=== PATIENT | female | born 1985 | race Caucasian/White ===

== ENCOUNTER → 2016-10-12 | Outpatient (CLI) | payer OTHER ==
[~2016-10-12] MED LIST: PRENTAB26 PO
[2016-10-12 18:35] LABS: GTGD 50 Grams
== END | disposition home or self-care (01) ==
LOC: C.LAB1850 15:50
PROVIDERS: ATTEND Obstetrics & Gynecology
DX: Z34.02 Encounter for supervision of normal first pregnancy, second trimester (principal)

== ENCOUNTER 2016-12-23 18:46 | Outpatient (CLI) | payer OTHER ==
[~2016-12-23] VITALS: Ht 175.3 cm; Wt 65.8 kg
[2016-12-23] MEDS ORDERED: PRENTAB26 PO (19:22)
[2016-12-23 19:25] VITALS: Ht 175.3 cm; Wt 65.8 kg
--- NOTE | 2016-12-24 13:55 | EDITING REQUIRED CODING QUERY ---
DIAGNOSIS NEEDED To promote full compliance with coding requirements relating to patient care, physician participation is requested in all cases of box spring maker uncertainty. Please assist us with the question(s) below: Coding Question: The patient received care in labor and delivery on 12/23/16 as noted within the record. Please document the diagnosis that is being addressed by the medication/treatment. Provider Response: DIAGNOSIS: 27 weeks, fall Thank you for your assistance, Tita Carmona - Sharepoint Application Architect
== END 2016-12-23 23:07 | disposition home or self-care (01) ==
LOC: C.OPB 18:46 → C.LD 18:46 → C.OPB 23:07
PROVIDERS: ATTEND Obstetrics & Gynecology
DX: Z34.02 Encounter for supervision of normal first pregnancy, second trimester (principal); Z3A.27 27 weeks gestation of pregnancy; W19.XXXA Unspecified fall, initial encounter

== ENCOUNTER → 2017-01-05 | Outpatient (CLI) | payer OTHER ==
[2017-01-05 18:39] LABS: GTGD 50 Grams
[2017-01-05 18:44] LABS: URINE APPEARANCE CLEAR (CLEAR); URINE BILIRUBIN NEG (NEG); URINE COLOR YELLOW; URINE NITRITE NEG (NEG); URINE PH 7.5 (4.5-7.5); URINE SPECIFIC GRAVITY 1.009 (1.000-1.030); UROBILINOGEN NEG (NEG)
[2017-01-05 18:47] LABS: MANUAL MICROSCOPIC REQUIRED? NO; REVIEW REQ? NO
== END | disposition home or self-care (01) ==
LOC: C.LAB1850 15:05
PROVIDERS: ATTEND Obstetrics & Gynecology
DX: Z34.03 Encounter for supervision of normal first pregnancy, third trimester (principal)

== ENCOUNTER → 2017-03-03 | Outpatient (CLI) | payer OTHER | END | disposition home or self-care (01) | LOC: C.LABSPEC 10:46 | PROVIDERS: ATTEND Obstetrics & Gynecology | DX: Z34.03 Encounter for supervision of normal first pregnancy, third trimester (principal) ==

== ENCOUNTER → 2017-03-11 | Outpatient (CLI) | payer OTHER ==
[2017-03-15 01:36] LABS: 18KDIGG BAND NONREACTIVE (NONREACTIVE); 23KDIGG BAND NONREACTIVE (NONREACTIVE); 23KDIGM BAND REACTIVE (NONREACTIVE); 28KDIGG BAND NONREACTIVE (NONREACTIVE); 30KDIGG BAND NONREACTIVE (NONREACTIVE); 39KDIGG BAND NONREACTIVE (NONREACTIVE); 39KDIGM BAND NONREACTIVE (NONREACTIVE); 41KDIGG BAND REACTIVE (NONREACTIVE); 41KDIGM BAND REACTIVE (NONREACTIVE); 45KDIGG BAND NONREACTIVE (NONREACTIVE); 58KDIGG BAND NONREACTIVE (NONREACTIVE); 66KDIGG BAND REACTIVE (NONREACTIVE); 93KDIGG BAND NONREACTIVE (NONREACTIVE)
== END | disposition home or self-care (01) ==
LOC: C.LAB1850 09:43
PROVIDERS: ATTEND Family Medicine
DX: T14.8 Other injury of unspecified body region (principal); W57.XXXA Bitten or stung by nonvenomous insect and other nonvenomous arthropods, initial encounter

== ENCOUNTER 2017-03-30 23:07 | Inpatient (IN) | payer OTHER ==
[~2017-03-30] VITALS: Ht 175.3 cm; Wt 70.0 kg
[2017-03-30] MEDS ORDERED: LACTATED RINGER'S 1000ML 1,000 ML IV PRN (23:27)
[2017-03-30] MEDS ORDERED: BUPIVACAINE 0.25% 30 ML VIAL ONE (23:54)
[2017-03-30] MEDS ORDERED: EpHEDrine SULFATE INJ 50 MG/ML AMP ONE (23:54)
[2017-03-30] MEDS ORDERED: FENTANYL CITRATE INJ 50 MCG/1 ML 2 ML VIAL ONE (23:54)
[2017-03-30] MEDS ORDERED: FENTANYL 2MCG/ML ROPIV 1.25MG/ML 100ML BAG EPI ONE (23:54)
[2017-03-31 00:27] VITALS: Ht 175.3 cm; Wt 70.0 kg
[2017-03-31 00:28] LABS: MEAN CELL VOLUME 95.1 fL (80-100); MEAN CORPUSCULAR HEMOGLOBIN 32.4 pg (25-34); MEAN PLATELET VOLUME 11.2 fL (7.4-10.4); PLATELET COUNT 160 K/uL (130-400); RED BLOOD COUNT 3.89 M/uL (4.2-5.4); WHITE BLOOD COUNT 13.16 K/uL (4.8-10.8)
[2017-03-31 00:33] LABS: MEAN CORPUSCULAR HGB CONC 34.1 g/dl (32-36)
[2017-03-31] MEDS: LACTATED RINGER'S 1000ML 1,000 ML IV SCH ×2 (01:14→09:42)
[2017-03-31] MEDS ORDERED: NALOXONE HCL INJ 1 MG in SODIUM CHLORIDE 0.9% 1000ML 1,000 ML IV PRN (01:39)
[2017-03-31] MEDS ORDERED: LACTATED RINGER'S 1000ML 500 ML IV PRN (01:39)
[2017-03-31] MEDS ORDERED: NALOXONE HCL INJ 0.4 MG/1 ML VIAL/CARP IV PRN (01:45)
[2017-03-31] MEDS ORDERED: EpHEDrine SULFATE INJ 50 MG/ML AMP IV PRN (01:45)
[2017-03-31] MEDS ORDERED: NALBUPHINE HCL INJ 10 MG/ML AMP IV PRN (01:45)
[2017-03-31] MEDS ORDERED: DiphenhydrAMINE HCL 50 MG/ML VIAL IV PRN (01:45)
[2017-03-31] MEDS: FENTANYL 2MCG/ML ROPIV 1.25MG/ML 100ML BAG EPI PRN ×3 (07:42→12:08)
[2017-03-31] MEDS ORDERED: FENTANYL CITRATE INJ 50 MCG/1 ML 2 ML VIAL ONE ×2 (08:08→10:38)
[2017-03-31] MEDS ORDERED: NURSING DECISION MEDICATION ORDER SCH (10:00)
[2017-03-31] MEDS ORDERED: AMOXICILLIN 500 MG CAP PO ONE (10:00)
[2017-03-31] MEDS ORDERED: FENTANYL CITRATE INJ 50 MCG/1 ML 2 ML VIAL IV ONE (11:00)
--- NOTE | 2017-03-31 11:05 | Medical Student: [facility] ---
Med Student History & Physical Date of Service Mar 31, 2017. Chief Complaint Check labor History of Present Illness Source: patient, clinic records, hospital records Odalis Mendez is a 31 year old at 41 weeks gestation KADIE 03/24/17 admitted to L&D around mindnight this morning for spontaneous onset of labor. She is blood type A negative, GBS negative, and rubella immune. She took vitamins throughout the . She had a Panorama on 09/21/16 that was within normal limits. A ultrasound on 11/13/16 showed no abnormalities. She recieved Rhogam at 26 weeks. At around 27 weeks she had a fall. She had an abnormally low MSAFP, and requested weekly NSTs starting at 36 weeks as her sister recently gave to a baby with lissencephaly due to a 17p deletion. NSTs have been reactive. OB History Patient is a no other Ob. 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 Past Medical History no contributory past medical history Past Surgical History [place] teeth surgery Family History Family history of anemia. Patient's mother and sisters x2 have thalassemia. Patient is negative for thalassemia. the father and his brother(paternal uncle) have a delayed muscular development disorder Social History non-contributory Smoking Status: Never Smoker Smokeless Tobacco Use: No Alcohol Use: none Drug Use: none Marital Status: Occupational Status: employed Allergies Coded Allergies: No Known Allergies (Unverified , 03/31/17) Home Medications Multivit/Min/Iron/Fol Ac/Pren ( Vitamin), 1 TAB PO DAILY Physical Exam Fundal Height: term Extremities: normal inspection Appearance: distress from labor pain Abdomen: gravid, lie is vertex Extremities: normal inspection Fundus: term : Dilation - 8.5-9, effacement 100%, Station 0 Monitoring External Monitor: Heart rate in 150s Tocodynamometer: Contractions every 3 min. of adequate strength. Normal tracing with accels and no decels at the moment. Category 1. Laboratory Results 03/30/17 23:58 Test 03/30/17 23:58 Red Blood Count 3.89 M/uL (4.2-5.4) Mean Corpuscular Volume 95.1 fL (80-100) Mean Corpuscular Hemoglobin 32.4 pg (25-34) Mean Corpuscular Hemoglobin Concent 34.1 g/dl (32-36) RDW Standard Deviation 44.0 fL (36.4-46.3) RDW Coefficient of Variation 12.7 % (11.5-14.5) Mean Platelet Volume 11.2 fL (7.4-10.4) Assessment and Plan Assessment: 1. Patient is a 31 year old at 41 weeks gestation in spontaneous labor 2. distressing pain during contractions of labor Plan: 1. Continue spontaneous labor for vaginal delivery 2. Epidural anesthesia for pain management
[2017-03-31] MEDS ORDERED: OXYTOCIN 30 UNITS/500ML NSS IV ONE (12:42)
[2017-03-31] MEDS: AMOXICILLIN 500 MG CAP PO SCH ×2 (15:17→21:07)
--- NOTE | 2017-03-31 15:32 | Vaginal Delivery Summary ---
Vaginal Delivery Summary 31yo pushing for 2.5 hours. I went to room to examine patient and found head at +3 station, just appearing between labia with pushes. Patient was tearful and complaining of exhaustion and frustration. On exam in between pushing efforts I was able to dislodge head upwards and allow a flow of thickly meconium-stained fluid per vagina. However her next pushing effort brought the head back to where scalp was visible between labia. I offered options including continued pushing, attempt of operative vaginal delivery, and . Patient strongly desired attempt of operative vaginal delivery. I elected for vacuum as the infant was very close to and did not have significant molding or caput. The patient and her partner were counseled fully on the risks of vacuum use including scalp injury, neck/shoulder injury, dystocia, or increased maternal lacerations, as well as failure leading to urgent . She agreed to proceed. Infant in RAUL position. Betadine prep and urinary straight cath performed. The vacuum was applied. Suction was generated to the "safe" zone on the Kiwi cup. Unfortunately suction was difficult to maintain due to so much hair on the baby's head. I was only able to apply very minimal traction before the suction began to loosen. Maternal pushing efforts continued, and we were jointly able to bring the head to . I then created a small midline episiotomy, and over several more pushing efforts, mom was able to deliver the head. From that point the remainder of delivery was easy without any delay for shoulders or body. Placenta delivered spontaneously and was intact with 3VC. A second-degree laceration was repaired with vicryl suture. The fundus was firm, lochia was minimal, and mom and are in good condition following delivery.
--- NOTE | 2017-03-31 15:34 | Medical Student: [facility] ---
Medical Student Delivery Note Delivery Date: 03/31/2017 Procedure: Operative (Vacuum assisted) vaginal delivery at 41 weeks gestation Surgeon: Dr. Jernigan Anesthesia: Epidural anesthesia Estimated blood loss: 400mL Description: Odalis Mendez is a 31 year old at 41 weeks gestation KADIE 08/29 admitted to L&D around midnight this morning for spontaneous onset of labor. She is blood type A negative, GBS negative. She progressed to full dilation. The patient then pushed actively over an intact perineum for about 2.5 hours. The vertex stalled at around 3+ station. The patient experienced moderate - severe breakthrough pain in spite of the epidural. She described exhaustion from pushing in active labor. The patient was given options to continue delivery including continuing spontaneous delivery, operative delivery options including vacuum or forceps, and section. The patient was education on the risk and benefits of each procedure. She did not was a c- section and decided vacuum assisted operative delivery was best, as she was very tired from pushing. A kiwi vacuum was used to assist in descent and maneuvering of the head around the pubic symphysis. A midline episiotomy was made to aid in delivery of the head. No nuchal cord was noted. The infant was delivered head first, left occiput anterior, then anterior shoulder, then posterior shoulder, and then the body was delivered. The was placed on mothers abdomen for further attention and warming. The mouth and pharynx were suctioned. There was spontaneous crying and movement of all 4 limbs. The cord was clamped and cut. Cord blood was collected. Placenta was intact and delivered with a 3 vessel cord. Bleeding was then controlled with fundal massage and dilute IV oxytocin. A second degree laceration was repaired with 2- 0 vicryl suture and 3-0 vicryl suture. Mom and baby are doing well after delivery. Apgars 8/9. Weight pending. Estimated blood loss 400mL.
[2017-03-31] MEDS ORDERED: LACTATED RINGER'S 1000ML 1,000 ML IV SCH (15:40)
[2017-03-31] MEDS ORDERED: OXYCODONE/ACETAMINOPHEN 5-325 TAB PO PRN (15:45)
[2017-03-31] MEDS ORDERED: OXYTOCIN 30 UNITS/500ML NSS IV PRN (15:45)
[2017-03-31] MEDS ORDERED: BENZOCAINE 20% AER SPR 82.5 GM CAN EXT PRN (15:45)
[2017-03-31] MEDS ORDERED: HYDROCORTISONE ACETATE 25 MG SUPP PR PRN (15:45)
[2017-03-31] MEDS ORDERED: SUPERCREAM 0.870 % 15GM JAR EXT PRN (15:45)
[2017-03-31] MEDS ORDERED: LANOLIN OINT EXT PRN ×2 (15:45)
[2017-03-31] MEDS ORDERED: ACETAMINOPHEN 325 MG TAB PO PRN (15:45)
[2017-03-31] MEDS ORDERED: IBUPROFEN 600 MG TAB PO PRN (15:45)
--- NOTE | 2017-03-31 16:00 | Anesthesia Procedure Note ---
Anesthesia Epidural Removal Nt Date & Time Mar 31, 2017 at 16:00 Vital Signs Pain Intensity: 0.0 Notes Mental Status: alert / awake / arousable, participated in evaluation Nausea / Vomiting: adequately controlled Pain: adequately controlled Airway Patency, RR, SpO2: stable & adequate BP & HR: stable & adequate Hydration State: stable & adequate Neuraxial Anesthesia: was administered Anesthetic Complications: no major complications apparent, pt satisfied with anesthetic care Epidural: removed without complications, with tip intact
[2017-03-31 18:10] VITALS: BP 114/69; PULSE 74; TEMP 36.9
[2017-03-31 20:50] VITALS: BP 103/62; PULSE 62; TEMP 37; O2SAT 97
[2017-03-31] MEDS: DOCUSATE SODIUM 100 MG CAP PO SCH (21:07)
[2017-04-01] VITALS: BP 100/62; PULSE 64; TEMP 36.9; O2SAT 97
[2017-04-01 03:20] VITALS: BP 92/53; PULSE 61; TEMP 36.9; O2SAT 97
[2017-04-01 06:18] LABS: HEMATOCRIT 27.7 % (37-47)
--- NOTE | 2017-04-01 06:43 | OB/GYN Progress Note ---
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 Subjective conversation w/ patient, physical exam, chart review, lab review Ambulation: limited ambulation (to bathroom) Voiding: no voiding problems Passing Gas: Yes Diet Tolerance: Regular Diet Lochia: Small Feeding Type: Breast Feeding Pain: Says low abdomen "sore" Review of Systems Constitutional: No fever, No chills Respiratory: No cough, No shortness of breath Cardiac: No chest pain Abdomen: No nausea, No vomiting, No diarrhea Female : No dysuria Objective Vital Signs Date Time Temp Pulse Resp B/P (MAP) Pulse Ox O2 Delivery O2 Flow Rate FiO2 04/01/17 03:20 36.9 61 18 92/53 (66) 97 Room Air 04/01/17 00:00 Room Air 04/01/17 00:00 36.9 64 20 100/62 (75) 97 Room Air 03/31/17 20:50 37.0 62 20 103/62 (76) 97 Room Air 03/31/17 18:10 Room Air 03/31/17 18:10 36.9 74 18 114/69 (84) Room Air Physical Exam General Appearance: WELL-APPEARING, WD/WN, NO APPARENT DISTRESS Respiratory/Chest: lungs clear, normal breath sounds Cardiovascular: regular rate, rhythm Abdomen: normal bowel sounds, non tender Fundus: Firm, Non-Tender, Relation to Umbilicus (at umbilicus) Extremities: normal range of motion, non-tender, no pedal edema, no calf tenderness Laboratory Results Last 24 Hours Test 04/01/17 05:33 Hemoglobin 9.7 g/dL Hematocrit 27.7 % Assessment and Plan Post- Day Number: 1 Continue Routine Care: 31yo s/p , now PPD #1. - Blood type A neg. GBS negative. Rubella immune. - Vital signs reviewed and stable. - Pain controlled without PO meds thus far. - No leg swelling or tenderness on calf palpation. Encourage ambulation. - Encourage breast feeding. - Hemoglobin preop 12.6, post-delivery this am pending. Bleeding has improved. Continue to monitor clinically. - On amoxicillin PO for hx positive lyme titer from prepartum. - Continue routine post-vaginal delivery care. - Pt agreed with above plan, all current questions answered. Willis Gardiner MD, PGY1 Crime Laboratory Analyst Physician Supervision Note: I interviewed and examined the patient. Discussed with Dr. Gardiner and agree with findings and plan as documented in the note. Any exceptions or clarifications are listed here: [None] Documented By: Adrienne Jernigan Resident Tracking Resident Involvement: Resident Care Provided Care Provided: OB Delivery (morning rounds)
[2017-04-01] MEDS ORDERED: DIPHTHERIA/TETANUS/PERTUSSIS 0.5 ML SYR/VIAL IM. ONE (08:00)
[2017-04-01] MEDS: AMOXICILLIN 500 MG CAP PO SCH ×3 (08:39→19:43)
[2017-04-01] MEDS: DOCUSATE SODIUM 100 MG CAP PO SCH ×2 (08:40→19:43)
[2017-04-01] MEDS: FERROUS SULFATE 325 MG TAB PO SCH (08:41)
[2017-04-01] MEDS: PRENATAL VITAMIN TAB PO SCH (08:42)
[2017-04-01 09:15] VITALS: BP 99/65; PULSE 56; TEMP 36.7; O2SAT 98
[2017-04-01 12:45] VITALS: BP 97/63; PULSE 72; TEMP 36.8; O2SAT 96
[2017-04-01 15:45] VITALS: BP 105/69; PULSE 64; TEMP 36.7; O2SAT 98
[2017-04-02] VITALS: BP 122/70; PULSE 61; TEMP 37; O2SAT 99
--- NOTE | 2017-04-02 06:29 | Medical Student: [facility] ---
Med Student MANAGER DOCUMENT CONTROL Progress Nt Date of Service Apr 02, 2017. Subjective conversation w/ patient, physical exam Ambulation: limited ambulation (Walks to bathroom and nursery, has not went on walks around floor yet) Voiding: no voiding problems Passing Gas: Yes Diet Tolerance: Regular Diet Lochia: Small Feeding Type: Breast Feeding Pain: Minimal. Expected level of tenderness to perineum Notes: Describes a headache since last night. Has not taken any medication for it Sitz baths have helped with perineal tenderness She has breast tenderness and describes her breasts as "raw" Review of Systems Abdomen: No nausea, No vomiting Female : No dysuria Noted no mood changes, no edema, no swelling. Objective Vital Signs Date Time Temp Pulse Resp B/P (MAP) Pulse Ox O2 Delivery O2 Flow Rate FiO2 04/02/17 00:00 37.0 61 18 122/70 (87) 99 Room Air 61 04/02/17 00:00 Room Air 04/01/17 15:45 98 Room Air 04/01/17 15:45 36.7 64 16 105/69 (81) 98 Room Air 64 04/01/17 12:45 36.8 72 20 97/63 (74) 96 Room Air 04/01/17 09:15 Room Air 04/01/17 09:15 36.7 56 16 99/65 (76) 98 Room Air Physical Exam General Appearance: WELL-APPEARING, WD/WN Respiratory/Chest: lungs clear, normal breath sounds Cardiovascular: regular rate, rhythm Fundus: Firm Fundal height 2 finger lengths below the umbilicus Assessment and Plan Post- Day Number: 2 Continue Routine Care: Assessment: Patient is a 31 year old PPD 2 post operative vacuum assisted vaginal delivery at 41 weeks gestation. Patient is voiding appropriately Patient is on normal diet Vitals appropriate Limited ambulation Pain controlled Uterine fundus at appropriate level Plan: Continue routine care and maintain diet and voiding appropriately Normal vitals watched and noted Patient Encouraged to ambulate the halls Patient Encouraged to keep working on , consultation occurred, reassured her that her breast tenderness, raw nipple feeling will improve with time and more feedings Pain controlled currently, noted Continue routine care
--- NOTE | 2017-04-02 06:56 | OB/GYN Progress Note ---
ERP PROGRAMMER Progress Note Date of Service Apr 02, 2017. Subjective conversation w/ patient, physical exam, chart review, lab review Ambulation: ambulating normally Voiding: no voiding problems Passing Gas: Yes Diet Tolerance: Regular Diet Lochia: Small Feeding Type: Breast Feeding Pain: "Sore" low abd with breast feeding Notes: Mild bilateral GRAF, denies need for PO pain meds. Review of Systems Constitutional: No fever, No chills Respiratory: No cough, No shortness of breath Cardiac: No chest pain Abdomen: No nausea, No vomiting, No diarrhea Female : No dysuria Objective Vital Signs Date Time Temp Pulse Resp B/P (MAP) Pulse Ox O2 Delivery O2 Flow Rate FiO2 04/02/17 00:00 37.0 61 18 122/70 (87) 99 Room Air 61 04/02/17 00:00 Room Air 04/01/17 15:45 98 Room Air 04/01/17 15:45 36.7 64 16 105/69 (81) 98 Room Air 64 04/01/17 12:45 36.8 72 20 97/63 (74) 96 Room Air 04/01/17 09:15 Room Air 04/01/17 09:15 36.7 56 16 99/65 (76) 98 Room Air Physical Exam General Appearance: WELL-APPEARING, WD/WN, NO APPARENT DISTRESS Respiratory/Chest: lungs clear, normal breath sounds Cardiovascular: regular rate, rhythm Abdomen: normal bowel sounds, non tender, soft Fundus: Firm, Non-Tender, Relation to Umbilicus (at umbilicus) Extremities: normal range of motion, non-tender, no pedal edema, no calf tenderness Speaking easily, appears very comfortable, no gross neuro deficits. Assessment and Plan Post- Day Number: 2 Continue Routine Care: 31yo s/p VD, now PPD #2. - Blood type A neg. GBS negative. Rubella immune. - Vital signs reviewed and stable. - Pain controlled without PO meds thus far. Likely mild tension GRAF as well. Discussed care plan. - No leg swelling or tenderness on calf palpation. Encourage ambulation. - Encourage breast feeding. - Hemoglobin prepartum 12.6, post-delivery 9.7. Continue to monitor clinically. - On amoxicillin PO for hx positive lyme titer prepartum. - Continue routine post-vaginal delivery care. - Pt agreed with above plan, all current questions answered. Willis Minor MD, PGY1 Filteration Operator Physician Supervision Note: I interviewed and examined the patient. Discussed with Dr. Minor and agree with findings and plan as documented in the note. Any exceptions or clarifications are listed here: Agree. Plan d/c home, instructions given. Documented By: Saskia Mejias Resident Tracking Resident Involvement: Resident Care Provided Care Provided: OB Delivery (morning rounds)
--- NOTE | 2017-04-02 06:57 | Discharge Instructions ---
Discharge Instructions Date of Service Apr 02, 2017. Admission Reason for Admission: Check Labor Discharge Discharge Diagnosis / Problem: Recovery from vaginal delivery Discharge Goals Goal(s): Routine recovery after delivery Medications Continue Dispensed Medications: supercream, dermaplast, tucks, lansinoh Activity Recommendations Activity Limitations: per Instructions/Follow-up section . Instructions / Follow-Up Instructions / Follow-Up ACTIVITY RECOMMENDATIONS: * Gradual return to full activity over the next 2-3 weeks. * No lifting - nothing heavier than baby over the next 2-3 weeks. * Do not engage in vigorous exercise, sexual activity or sports until cleared by your physician. * Do not drive or operate any motorized equipment until cleared by your physician. * You may shower/bathe daily. MEDICATIONS: For discomfort or pain, you may use Acetaminophen (Tylenol), Ibuprofen (Advil), or Naproxen (Aleve) following the package directions. For constipation you may use Colace following the package directions. BREAST CARE: If you are not breast feeding: * Wear a supportive bra 24 hours a day for one to two weeks. * Avoid stimulating your breasts and nipples as much as possible during the first few weeks after delivery. * When taking a shower, have the warm water hit your back, not breasts. * When your breasts feel full, apply ice packs. Usually three to four times a day helps ease the discomfort. * Take a mild pain medication (Tylenol / Motrin) when you are uncomfortable. If breast feeding: * Use breast milk to lubricate nipples. Lansinoh cream may be used for sore nipples. You do not need to remove cream prior to breast feeding. If using a different brand of cream, check the label for directions regarding removal of cream prior to nursing. * Wear a supportive bra. * If having problems with breasts or breast feeding, call a [employer] hrms consultant or your health care provider. EPISIOTOMY CARE: After delivery, if you have an episiotomy (stitches), the following steps will ease discomfort and aid healing. * For the first 24 hours after delivery, place ice packs next to your episiotomy to help reduce swelling. * After the first 24 hour-period, sitz baths, either portable or in the tub, are suggested. A shower with a shower arm sprayed over the episiotomy may be comforting. * Brenda care should be done after each voiding and bowel movement. Squirt warm water from a plastic bottle over the perineum (region of the body between the anus and urinary opening) and pat dry. * Use Dermoplast to ease discomfort. Shake container. [place] directly over the episiotomy. Place a Tucks on a clean sanitary pad next to your episiotomy. SPECIAL CARE INSTRUCTIONS: When you are discharged from the hospital, it is important for you to follow the instructions listed below: * During the first week at home, you should be able to care for yourself and your baby. In addition, the usual light household activities are encouraged. * Limit your activities to the way you feel. Do not try to clean the house or move furniture. Be sensible. * If you actively engage in sports and have done so up until the time of your delivery, you may resume these activities as soon as you feel able. This may take up to one month or even longer. Use good judgment. * Continue to take your vitamins for at least six weeks after the of your baby. * Your diet need not be limited unless you were on a special diet before your delivery. Breast-feeding mothers need around 2500 calories per day and at least 64-80 ounces of fluid per day (8 to 10 glasses). * You should eat foods from the four major food groups. Crash diets or fad diets are to be avoided. Eating lean meats, fresh fruits and vegetables, low-fat dairy products, high fiber foods and a regular exercise program, will help you get back to your pre- weight without putting your health at risk. * Constipation is sometimes a problem after delivery. Take a mild laxative as needed. If breast feeding, Milk of Magnesia is acceptable to use. You may use a suppository or Fleets enema if no episiotomy. * A daily shower or tub bath is suggested. Be sure to thoroughly and gently dry the perineum. * A bloody vaginal discharge will usually continue until around four weeks post . A small amount of bleeding may continue for as long as six weeks. Vaginal discharge changes from the bright red bleeding after delivery to pink then brownish and finally yellowish-pink before becoming white and disappearing. * Bleeding may increase with activity. Your first period may come in 4-8 weeks. If you are breast feeding, your period may be delayed even longer. * [place] (sex) can begin whenever both you and your partner feel comfortable and do not have any form of genital infection. It is recommended that you wait at least six weeks for internal and external healing to occur. If you have questions, please talk to your health care practitioner. A condom should be used to prevent infection and . * Foreplay, gentle intercourse and lubrication is very important the first several times to prevent pain. A water-based lubricant such as K-Y jelly or Astroglide may be used. * If you have RH negative blood and your baby is RH positive, you will receive RHOGAM by injection prior to discharge. The nurse will give you a card to keep with you that has the date and place that you received RHOGAM after delivery. * During your care, you had a Rubella screen done to check for the presence of rubella antibodies in your blood. If your test was negative, you will receive a Rubella vaccine prior to discharge. This vaccine may cause a fever, soreness at the injection site and flu-like symptoms. If these symptoms persist, notify your health care practitioner. is not advised for one month after a Rubella vaccine. * Verbalizes understanding of car seat law as reviewed with patient nursing. * Car Seat hand-out given and reviewed with patient by nursing. * Shaken baby information reviewed with patient by nursing. Call you doctor if: * Heavy bleeding (saturating several pads an hour) or passing clots the size of your fist. * A fever >101 degrees F (38.3 degrees C) on two occasions four hours apart and /or chills. * Unusual pain in the pelvic or vaginal areas. * "Baby Blues" lasting longer than two weeks. If you have any questions or concerns, call your health care practitioner at . FOLLOW UP VISIT: * Please call the office at to schedule a 6 week examination. It is important you keep this appointment. It is important for you to make arrangements for either yearly or twice yearly check-ups thereafter. Current Hospital Diet Patient's current hospital diet: Regular OB Diet Discharge Diet Recommended Diet: Regular OB Diet Pending Studies Studies pending at discharge: no Medical Emergencies . Who to Call and When: Medical Emergencies: If at any time you feel your situation is an emergency, please call [phone] immediately. . Non-Emergent Contact Non-Emergency issues call your: Inspector Final Assembly Mechanical . . "Provider Documentation" section prepared by Willis Gardiner. . VTE Core Measure Inpt VTE Proph given/why not?: Treatment not indicated
[2017-04-02 07:44] VITALS: BP 96/58; PULSE 58; TEMP 36.3; O2SAT 96
[2017-04-02] MEDS: DOCUSATE SODIUM 100 MG CAP PO SCH (08:28)
[2017-04-02] MEDS: FERROUS SULFATE 325 MG TAB PO SCH (08:28)
[2017-04-02] MEDS: AMOXICILLIN 500 MG CAP PO SCH (08:28)
[2017-04-02] MEDS: PRENATAL VITAMIN TAB PO SCH (08:28)
[2017-04-02 11:00] VITALS: BP_DIAS 58; PULSE 58; TEMP 36.3
--- NOTE | 2017-04-14 09:29 | Discharge Summary ---
Discharge Summary Date of Service Apr 14, 2017. Discharge Summary Admission Date: Mar 30, 2017 at 23:28 Discharge Date: Apr 02, 2017 Discharge Disposition: Home Principal Diagnosis: Vaginal delivery Medication Reconciliation Continued Medications: Multivit/Min/Iron/Fol Ac/Pren ( Vitamin) Tab 1 TAB PO DAILY, TAB Hospital Course Total Time Spent: Less than 30 minutes This includes examination of the patient, discharge planning, medication reconciliation, and communication with other providers. Discharge Instructions Please refer to the electronic Patient Visit Report (Discharge Instructions) for additional information.
== END 2017-04-02 11:15 | disposition home or self-care (01) | DRG 775 ==
LOC: C.LD 23:07 → C.OPB 23:07 → C.LD 23:28 → C.OPB 23:28 → C.OBG 03-31 18:05
PROVIDERS: ADMIT Obstetrics & Gynecology; ATTEND Obstetrics & Gynecology
PROC: 10907ZC Drainage of Amniotic Fluid, Therapeutic from Products of Conception, Via Natural or Artificial Opening (ICD-10-PCS; principal; 2017-03-31)
PROC: 10D07Z6 Extraction of Products of Conception, Vacuum, Via Natural or Artificial Opening (ICD-10-PCS; principal; 2017-03-31)
PROC: 0KQM0ZZ Repair Perineum Muscle, Open Approach (ICD-10-PCS; principal; 2017-03-31)
PROC: 4A1HXCZ Monitoring of Products of Conception, Cardiac Rate, External Approach (ICD-10-PCS; principal; 2017-03-31)
PROC: 0W8NXZZ Division of Female Perineum, External Approach (ICD-10-PCS; principal; 2017-03-31)
DX: O36.0930 Maternal care for other rhesus isoimmunization, third trimester, not applicable or unspecified (principal); O70.1 Second degree perineal laceration during delivery; O48.0 Post-term pregnancy; O75.81 Maternal exhaustion complicating labor and delivery; O77.0 Labor and delivery complicated by meconium in amniotic fluid; Z79.899 Other long term (current) drug therapy; Z3A.41 41 weeks gestation of pregnancy; Z37.0 Single live birth

== ENCOUNTER 2019-09-21 23:24 | Inpatient (IN) ==
[2019-09-21] MEDS ORDERED: PENICILLIN G POTASSIUM 3 MU in DEXTROSE 5% 100 ML IV PRN (23:30)
[2019-09-21] MEDS ORDERED: PENICILLIN G POTASSIUM 6 MU in DEXTROSE 5% 250 ML IV STA (23:30)
[2019-09-21] MEDS ORDERED: OXYTOCIN 30 UNITS/500 ML BAG IV PRN (23:30)
[2019-09-21] MEDS ORDERED: LACTATED RINGER'S 1,000 ML IV PRN (23:30)
[2019-09-21] MEDS ORDERED: fentaNYL citrate 100 MCG/2 ML VIAL ONE (23:38)
[2019-09-21] MEDS ORDERED: BUPIVACAINE 0.25% 30 ML VIAL ONE (23:39)
[2019-09-21] MEDS ORDERED: ePHEDrine sulfate 50 MG/ML AMP ONE (23:39)
[2019-09-21] MEDS ORDERED: fentaNYL 2MCG/ML ROPIV 1.25MG/ML 100 ML BAG EPI ONE (23:39)
--- NOTE | 2019-09-21 23:41 | History & Physical Report ---
Date of Service September 21, 2019 Assessment & Plan (1) : Admit, IV access, Penicillin for GBS, EFM/toco, will try for epidural before delivery. History of Present Illness Chief Complaint: labor Primary Care Provider: NO PCP 33yo @ 40 2/7, Q2 minute contractions. + movement. No vaginal bleeding. No leaking of fluid. complicated by GBS+, Rh negative. Allergies Allergy/AdvReac Type Severity Reaction Status Date / Time No Known Drug Allergies Allergy Unknown Verified 09/21/19 23:33 Home Medications Home Medications Medication Instructions Recorded Confirmed Type prenat.vits,louie,bvy-ogdu-daobp 1 tab PO DAILY 04/24/19 09/21/19 History Patient History Medical History (Updated 09/21/19 @ 23:33 by Charo Keenan RN) History of varicella Spontaneous vaginal delivery [facility] [place] Vacuum Social History (Updated 04/24/19 @ 07:37 by Sayda Jacome) Preferred Language: Greenlandic Communication Ability: Effective marital status: Current Living Situation: Spouse and Family Feels Safe at Home: Yes Smoking Status: Never smoker Hx Alcohol Use: No Review of Systems All systems reviewed & are unremarkable except as noted in HPI & below Physical Exam Constitutional: WD/WN, vitals as above Respiratory: normal respiratory effort, lungs clear to auscultation no respiratory distress Cardiovascular: Rate/Rhythm: regular rate and regular rhythm Gastrointestinal (Abdomen): Inspection/Auscultation: abdomen normal to inspection Percussion/Palpation: abdomen soft; abdomen nontender Gravid. No s/s chorio or abruption. Skin: no rashes, warm and dry Psychiatric: A+Ox3, euthymic affect Results & Data Vital Signs (Past 12 Hours) Vital Signs Pulse BP 09/21/19 23:28 85 145/88 H Monitoring External Monitor FHT difficult to trace due to extreme maternal discomfort, however FHT appear to be 130s mod justin + accels. No decels , [place] Q 2 Cervix 7/100/-1 per RN
[2019-09-21 23:47] LABS: Hematocrit (blood only) 39.9 % (37-47); Hemoglobin 13.5 g/dL (12.0-16.0); Mean Corpuscular Hemoglobin 32.8 pg (25-34); Mean Corpuscular Volume 97.1 fL (80-100); Mean Platelet Volume 11.5 fL (7.4-10.4); Platelet Count 174 K/uL (130-400); RDW Coefficient of Variation 12.9 % (11.5-14.5); RDW Standard Deviation 45.9 fL (36.4-46.3); Red Blood Count 4.11 M/uL (4.2-5.4); White Blood Count 8.69 K/uL (4.8-10.8)
[2019-09-22 00:01] LABS: Mean Corpuscular Hgb Conc 33.8 g/dL (32-36)
[2019-09-22] MEDS ORDERED: fentaNYL 2MCG/ML ROPIV 1.25MG/ML 100 ML BAG EPI PRN (00:10)
[2019-09-22] MEDS ORDERED: ONDANSETRON INJ 2 MG/ML 2 ML VIAL IV PRN (00:10)
[2019-09-22] MEDS ORDERED: NALOXONE HCL 0.4 MG/1 ML VIAL/CARP IV PRN (00:10)
[2019-09-22] MEDS ORDERED: NALOXONE HCL 1 MG in SODIUM CHLORIDE 0.9% 1000ML 1,000 ML IV PRN (00:10)
[2019-09-22] MEDS ORDERED: DiphenhydrAMINE HCL 50 MG/ML VIAL IV PRN (00:10)
[2019-09-22] MEDS ORDERED: ePHEDrine sulfate 50 MG/ML AMP IV PRN (00:10)
[2019-09-22] MEDS ORDERED: NALBUPHINE HCL INJ 10 MG/ML AMP IV PRN (00:10)
--- NOTE | 2019-09-22 00:10 | Anesthesiology Consultation ---
Date of Service September 22, 2019 History Allergies Allergy/AdvReac Type Severity Reaction Status Date / Time No Known Drug Allergies Allergy Unknown Verified 09/21/19 23:33 Medications Home Medications Medication Instructions Recorded Confirmed Last Taken prenat.vits,louie,ayg-kpad-olzna 1 tab PO DAILY 04/24/19 09/21/19 Unknown Past Medical History Medical History (Updated 09/21/19 @ 23:33 by Charo Keenan RN) History of varicella [place] [facility] [place] Vac[place] Social History Smoking Status: Never smoker Hx Alcohol Use: No Physical Exam Vital Signs Last Vital Signs Pulse 85 09/21/19 23:28 BP 145/88 H 09/21/19 23:28 Testing Laboratory Results 09/21/19 23:39
--- NOTE | 2019-09-22 01:04 | Delivery Summary ---
Vaginal Delivery Summary Date of Service September 22, 2019 Vaginal Delivery Summary Vaginal Delivery Summary: Pre-delivery diagnoses: 33yo @ 40 3/7, spontaneous labor, GBS+, Rh negative Post-delivery diagnoses: same Procedure: spontaneous vaginal delivery, repair of 2nd degree perineal laceration Surgeon: Nanci Fontaine DO Complications: none Findings: Viable male . Apgars: 8/8 . Weight pending, please see nursery records Estimated blood loss: 300ml Description of delivery: The patient progressed to complete without anesthesia. Pen G was started upon arrival, however not adequately treated with 4h of treatment due to quick progression of labor. AROM performed for clear fluid, she then began to push. She spontaneously vaginally delivered a viable from the cephalic presentation. The head delivered in EM position. Nuchal cord x 1 easily reduced. Compound right hand delivered at time of shoulders. The anterior shoulder delivered, followed by the posterior shoulder, followed by the body. The baby was placed on mother's abdomen and a spontaneous cry was heard. Delayed cord clamping was employed, and the cord was doubly clamped and cut. Cord blood was obtained. The placenta was delivered spontaneously intact with a 3-vessel cord. The uterus and vagina were swept of clots and debris. IV pitocin was given. The uterus became firm. The cervix, vagina, and perineum were inspected and a 2nd degree perineal lacerations was noted. 1% lidocaine was infused at the site, and the laceration was repaired in standard fashion with 3- 0 vicryl. Excellent hemostasis was observed. The mother and baby are recovering in stable and good condition in the room. Sponge, needle, and instrument counts were correct x 2. Nanci Fontaine DO [facility] [place]
[2019-09-22] MEDS ORDERED: IBUPROFEN 600 MG TAB PO PRN (01:08)
[2019-09-22] MEDS ORDERED: BENZOCAINE 20% AER SPR 82.5 GM CAN EXT PRN (01:08)
[2019-09-22] MEDS ORDERED: bisacodyL 10 MG SUPP PR PRN (01:08)
[2019-09-22] MEDS ORDERED: HYDROCORTISONE ACETATE 25 MG SUPP PR PRN (01:08)
[2019-09-22] MEDS ORDERED: SUPERCREAM 0.870% 15 GM JAR EXT PRN (01:08)
[2019-09-22] MEDS ORDERED: ACETAMINOPHEN 325 MG TAB PO PRN (01:08)
[2019-09-22] MEDS ORDERED: DIPHTHERIA/TETANUS/PERTUSSIS 0.5 ML SYR/VIAL IM ONE (01:08)
[2019-09-22] MEDS ORDERED: OXYCODONE/ACETAMINOPHEN 5mg/325mg TAB PO PRN (01:08)
[2019-09-22] MEDS ORDERED: OXYTOCIN 30 UNITS/500 ML BAG IV PRN (01:08)
[2019-09-22] MEDS: PRENATAL VITAMIN 1 TAB PO SCH (09:01)
[2019-09-22] MEDS: DOCUSATE SODIUM 100 MG CAP PO SCH ×2 (09:01→21:09)
[2019-09-23 06:32] LABS: Hematocrit (blood only) 32.2 % (37-47); Hemoglobin 10.7 g/dL (12.0-16.0)
--- NOTE | 2019-09-23 07:04 | Obstetrical Progress Note ---
Date of Service September 23, 2019 Assessment & Plan (1) Vaginal delivery: Patient doing well. Routine care. Baby has to stay because of gbs positive status. Day #:: 1 Subjective Ambulation: ambulating normally Voiding: no voiding problems Passing Gas:: Yes Diet Tolerance:: regular diet Lochia:: Small Feeding Type:: breast feeding Feels well today, no complaints. Physical Exam Constitutional WD/WN, vitals as above Cardiovascular Extremities: no calf tenderness and no edema Gastrointestinal (Abdomen) soft, nt, nd ff/nt 1 below u Results & Data Vital Signs (Past 12 Hours) Vital Signs Temp Pulse Pulse Resp BP BP Pulse Ox 09/22/19 23:50 36.6 C 60 18 113/65 96 09/22/19 19:25 37 C 65 16 113/61
[2019-09-23] MEDS: DOCUSATE SODIUM 100 MG CAP PO SCH ×2 (08:19→20:12)
[2019-09-23] MEDS: PRENATAL VITAMIN 1 TAB PO SCH (08:19)
[2019-09-23] MEDS ORDERED: bisacodyL 5 MG TABEC PO SCH (20:00)
[2019-09-24] MEDS: DOCUSATE SODIUM 100 MG CAP PO SCH (08:05)
[2019-09-24] MEDS: PRENATAL VITAMIN 1 TAB PO SCH (08:05)
--- NOTE | 2019-09-24 09:05 | Obstetrical Progress Note ---
Date of Service September 24, 2019 Assessment & Plan (1) Vaginal delivery: 33yo s/p day 2 Doing well. Stable for discharge Day #:: 2 Subjective Ambulation: ambulating normally Voiding: no voiding problems Passing Gas:: Yes Diet Tolerance:: regular diet Lochia:: Small Feeding Type:: breast feeding Current Pain Level(1-10): 2 Physical Exam Constitutional WD/WN, vitals as above Respiratory normal respiratory effort; no respiratory distress and no labored breathing Gastrointestinal (Abdomen) Inspection/Auscultation: abdomen normal to inspection; abdomen not distended Percussion/Palpation: abdomen soft; abdomen nontender, no guarding and abdomen not rigid Genitourinary OB Exam Abdomen: + fundal height Fundus: + firm and + relation to umbilicus (Below); not tender and not boggy Results & Data Vital Signs (Past 12 Hours) Vital Signs Temp Pulse Resp BP Pulse Ox 09/24/19 07:32 36.6 C 61 18 101/65 09/23/19 23:35 36.6 C 61 18 114/72 96
== END 2019-09-24 10:05 | disposition home or self-care (01) | DRG 807 ==
LOC: OPB 23:24 → 4S1 23:25 → 4N 09-22 03:15 → 4S2 09-23 15:52

== ENCOUNTER 2022-04-16 07:28 | Inpatient (IN) ==
[2022-04-16] MEDS ORDERED: LACTATED RINGER'S 1,000 ML IV PRN (07:33)
[2022-04-16] MEDS ORDERED: OXYTOCIN 30 UNITS/500 ML BAG IV PRN ×2 (07:33)
[2022-04-16 08:12] LABS: Hematocrit (blood only) 34.5 % (34.1-44.9); Hemoglobin 11.7 g/dl (12.0-16.0); Mean Corpuscular Hemoglobin 32.5 pg (25.0-34.0); Mean Corpuscular Hgb Conc 33.9 g/dL (32.0-36.0); Mean Corpuscular Volume 95.8 fL (80.0-100.0); Mean Platelet Volume 10.8 fL (9.4-12.3); Platelet Count 185 K/uL (130-400); RDW Standard Deviation 45.2 fL (36.4-46.3); White Blood Count 9.28 K/ul (4.8-10.8)
--- NOTE | 2022-04-16 08:14 | History & Physical Report ---
Date of Service April 16, 2022 Assessment & Plan (1) Supervision of elderly multigravida: Plan: 36 y/o at 41 wga presents for late term IOL VSS Fetus cat 1 Labor - start pit GBS neg epidural prn Admission and Anticipated Discharge Date Admission Date: April 16, 2022 History of Present Illness Chief Complaint: IOL Primary Care Provider: NO PCP 36 y/o at 41 wga presents for late term IOL. +FM;denies regular ctx, LOF, VB. 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 VAVD G2 2019 G3 current 02/2021 neg cyto Allergies Allergy/AdvReac Type Severity Reaction Status Date / Time No Known Drug Allergies Allergy Unknown Verified 04/15/22 09:11 Home Medications Medication Instructions Recorded Confirmed Type prenat.vits,louie,yhd-ognh-qfwmc 1 tab PO DAILY 04/24/19 04/15/22 History Patient History Medical History GBS (group B Streptococcus carrier), +RV culture, currently History of varicella [place]ontaneous vaginal [place] [facility] [place] Surgical History S/P wisdom tooth extraction Family History Aunt Breast cancer maternal Mother Thalassemia Sister Thalassemia Family/Other Pavon Dieker syndrome Denies family history of Ovarian cancer Colorectal cancer Social History (Updated 08/21/21 @ 14:43 by Sayda Jacome) Smoking Status: Never smoker Second Hand Exposure: No; Hx Alcohol Use: No Hx Substance Use: No Preferred Language: Romanian Communication Ability: Effective Export Agent Required: No Beliefs That Will Affect Care: None marital status: marital status details: Chester (36) [phone] Current Living Situation: Spouse Current Living Situation Comment: lives with spouse, 2 children, 1 dog. 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 Feels Safe at Home: Yes Assistive Devices: None Physical Exam Genitourinary: Manual OB Exam: + cervical dilation 3 cm, + cervical effacement 50% and + station high OB Exam Monitor Tracing: + external FHT monitor used, + external uterine monitor used (irreg ctx) and + category I (135/mod/+accel/- decel) Results & Data ([facility]) Vital Signs (Past 12 Hours) Vital Signs Pulse BP 04/16/22 07:44 72 118/63 Laboratory Results OB Labs: Blood Type A Negative 08/28/21 Antibody Screen NEGATIVE 01/15/22 Hemoglobin 11.1 g/dL (12.0-16.0) L 01/15/22 Hematocrit 34.6 % (37-47) L 01/15/22 Mean Corpuscular Volume 93.5 fL (80-100) 08/28/21 Platelet Count 302 K/uL (130-400) 08/28/21 Rubella IgG Antibody Immune (Immune) 08/28/21 Rapid Plasma Reagin Nonreactive (Nonreactive) 08/28/21 Hepatitis B Surface Antigen Neg (Neg) 08/28/21 Hepatitis C Antibody Neg (Neg) 08/28/21 HIV (1&2) Ab and P24 Ag, 4th Gener Neg (Neg) 08/28/21 Glucose 1 Hour 50 gm Load 110 mg/dl (70-130) 01/15/22 Maternal Serum Alpha Fetoprotein 29.0 ng/mL 10/23/21 OB Optional Labs: Chlamydia trachomatis RNA NOT DETECTED (NOT DETECTED) 08/28/21 Neisseria gonorrhoeae RNA NOT DETECTED (NOT DETECTED) 08/28/21 Alpha Fetoprotein Triple Screen SEE NOTE 10/23/21 Labs Reviewed: CF/SMA negative in prior (12/09/18) low risk panorama--akh msafp-negative--mln GBS neg Coding Level of Care Code None Diagnoses Supervision of elderly multigravida O09.529
--- NOTE | 2022-04-16 15:20 | Labor Progress Brief Note ---
Date of Service April 16, 2022 Subjective Attempting to labor unmedicated. Feels ready to be checked and potentially have water broken. Assessment & Plan (1) Post term over 40 weeks: Plan: Continue IOL Admission and Anticipated Discharge Date Admission Date: April 16, 2022 Physical Exam Genitourinary: /1 AROM clear trickle FHT Cat 1 [place] Q2 Pitocin running Results & Data ([facility]) Vital Signs (Past 12 Hours) Vital Signs Temp Pulse Resp BP 04/16/22 14:32 78 113/61 04/16/22 13:21 63 107/58 L 04/16/22 12:19 63 101/57 L 04/16/22 11:40 16 04/16/22 11:40 97.7 F 16 04/16/22 11:41 60 104/57 L 04/16/22 10:38 65 106/54 L 04/16/22 09:33 72 116/57 L 04/16/22 07:44 72 118/63 04/16/22 07:45 98.4 F 16 Coding Level of Care Code None Diagnoses Post term over 40 weeks O48.0
[2022-04-16] MEDS ORDERED: LIDOCAINE 1% LOCAL 20 ML VIAL ONE (15:55)
--- NOTE | 2022-04-16 16:18 | Delivery Summary ---
Vaginal Delivery Summary Date of Service April 16, 2022 Vaginal Delivery Summary DIAGNOSES: 1. Heard intrauterine at 41wk gestation. 2. Induction of Labor. 3. Group B Streptococcus Neg. PROCEDURE: Spontaneous vaginal delivery and repair of second degree laceration. SURGEON: Adrienne Jernigan MD. OPTICS MANUFACTURING TECHNICIAN: None. ESTIMATED BLOOD LOSS: 300 mL. COMPLICATIONS: None. PLACENTA: Spontaneous and intact with a 3-vessel cord. DISPOSITION: Stable to labor and delivery. DESCRIPTION: The patient pushed well and brought the head to in DOA position. The 's head was allowed to deliver with contraction force and no further active pushing, with the perineum protected during this time. There was a nuchal cord. The left shoulder was anterior. With the next maternal push the shoulder did not deliver. As the mother was pushing unmedica carol and at this point was somewhat disorganized, a second more coordinated maternal push was undertaken, with knees held back and head of the bed dropped to a more typical position (the mother had been pushing in a fairly upright position at her own request). That push also did not result in delivery, thus a dystocia was called and assistance was marshalled. Chuyita Lugo RN entered the room and was asked to provide suprapubic pressure, which she did by positioning herself on the bed over the patient and pressing down from the posterior aspect of the infant's shoulder, while the mother made another pushing effort, and another nurse on each side held her legs to create Ankur' position. With gentle downward traction on the head applied and an excellent maternal effort, the anterior shoulder was then able to be delivered. The posterior shoulder then delivered without difficulty and was followed by the rest of the body. The infant was placed on the maternal abdomen. It was vigorous and moving all extremities, and making respiratory efforts. The cord was doubly clamped by the MD and then cut by the MD, as the FOB declined. The cervix, vagina and perineum were examined and were found to have a shallow second-degree laceration, which was infiltrated with 1% lidocaine 10cc and then repaired using 3-0 vicryl including a crown stitch to rebuild the perineal body. After the crown stitch, the swaged-on needle popped off of the 3-0 suture, so a 4-0 vicryl was used to run subcuticular closure of the skin. The placenta delivered spontaneously and was noted to be intact and with a 3VC. It was shown to the patient at her request. The fundus was firm and lochia minimal immediately after delivery. [facility] Vaginal Delivery Charge Vaginal Delivery Codes: 27173 global code for the antepartum, delivery, and post-
[2022-04-16] MEDS ORDERED: IBUPROFEN 600 MG TAB PO PRN (16:23)
[2022-04-16] MEDS ORDERED: HYDROCORTISONE ACETATE 25 MG SUPP PR PRN (16:23)
[2022-04-16] MEDS ORDERED: oxyCODONE/ACETAMINOPHEN 5mg/325mg TAB PO PRN (16:23)
[2022-04-16] MEDS ORDERED: ACETAMINOPHEN 325 MG TAB PO PRN (16:23)
[2022-04-16] MEDS ORDERED: BENZOCAINE 20% AER SPR 82.5 GM CAN EXT PRN (16:23)
[2022-04-16] MEDS ORDERED: DIPHTHERIA/TETANUS/PERTUSSIS 0.5 ML SYR/VIAL IM ONE (16:23)
[2022-04-16] MEDS: DOCUSATE SODIUM 100 MG CAP PO SCH (21:55)
--- NOTE | 2022-04-17 05:32 | Obstetrical Progress Note ---
Date of Service <Josi Navarroalen - Last Filed: 04/17/22 06:15> April 17, 2022 Assessment & Plan <Josi Navarroannettejulienne - Last Filed: 04/17/22 06:15> (1) state: Patient is PPD 1 s/p and doing well. - Eating well, voiding well, ambulating well - Vitals reviewed and within normal limits - Pain well controlled - OOB, ambulation, diet progression as tolerated - Blood type: A-, GBS neg, rubella immune - Plan to discharge later today - After discharge, 6 [address] follow up with Dr. Jernigan <Adrienne Jernigan MD - Last Filed: 04/17/22 07:07> (1) state: Subjective <Josi Navarroannettejulienne - Last Filed: 04/17/22 06:15> Patient is a 36 yo female who is now PPD #1 following spontaneous vaginal delivery at 41 weeks. Reports feeling well this morning. She endorses abdominal cramping while nursing as 3/10 pain. Voiding well. Tolerating regular meals overnight and able to ambulate some. She has passed gas but no bowel movements. Persistent lochia with some improvement this morning. Currently breast feeding. Review of Systems Denies fever, chills, sweats. Denies SOB, difficulty breathing, chest pain, palpitations, and chest pressure. Denies breast pain. Denies dysuria. Denies headache or changes in vision. Physical Exam <Josi NavarroDO alen - Last Filed: 04/17/22 06:15> General: Alert and oriented. No acute distress. CV: Regular rate and rhythm. No murmurs. Respiratory: CTA bilaterally. No rhonchi, wheezes, or crackles. No increased work of breathing. Abdomen: Positive bowel sounds. Soft, nontender, non distended. Uterus: Fundus firm and palpable 2 cm below the umbilicus. Lower extremities: No LE edema. No deep calf pain. Aracelis's negative bilaterally. Results & Data ([facility]) <Josi NavarroDO alen - Last Filed: 04/17/22 06:15> Vital Signs (Past 12 Hours) Vital Signs Temp Pulse Pulse Resp BP BP Pulse Ox 04/16/22 23:20 36.7 C 61 16 104/67 96 04/16/22 19:40 37.1 C 59 L 17 111/68 96 04/16/22 17:40 20 04/16/22 18:27 72 106/61 04/16/22 18:13 56 L 107/59 L 04/16/22 17:43 60 99/58 L O2 Del Method 04/16/22 23:20 Room Air 04/16/22 19:40 Room Air 04/16/22 17:40 04/16/22 18:27 04/16/22 18:13 04/16/22 17:43 <Adrienne Jernigan MD - Last Filed: 04/17/22 07:07> Co-Signing Physician Notes Resident Physician Supervision Note: I interviewed and examined the patient. Discussed with Dr. Bar and agree with findings and plan as documented in the note. Any exceptions or clarifications are listed here: [ ] Documented By: Adrienne Jernigan MD, FACOG Resident Activity Tracking <Josi Bar, - Last Filed: 04/17/22 06:15> Resident Involvement: Resident Care Provided Care Provided: OB Delivery
[2022-04-17 06:19] LABS: Hematocrit (blood only) 33.5 % (34.1-44.9); Hemoglobin 11.4 g/dl (12.0-16.0); Mean Corpuscular Hemoglobin 32.9 pg (25.0-34.0); Mean Corpuscular Volume 96.8 fL (80.0-100.0); Mean Platelet Volume 10.9 fL (9.4-12.3); Platelet Count 163 K/uL (130-400); RDW Standard Deviation 45.5 fL (36.4-46.3); Red Blood Count 3.46 M/uL (3.93-5.22); White Blood Count 10.78 K/ul (4.8-10.8)
[2022-04-17] MEDS: DOCUSATE SODIUM 100 MG CAP PO SCH ×2 (07:50→20:38)
[2022-04-17] MEDS: PRENATAL VITAMIN 1 TAB PO SCH (07:50)
--- NOTE | 2022-04-18 05:51 | Obstetrical Progress Note ---
Date of Service <Josi Navarroannettejulienne - Last Filed: 04/18/22 06:34> April 18, 2022 Assessment & Plan <Josi Bar - Last Filed: 04/18/22 06:34> (1) state: Patient is PPD 2 s/p and doing well. - Eating well, voiding well, ambulating well - Vitals reviewed and within normal limits - Pain well controlled - Blood type: A-, GBS neg, rubella immune - Plan to discharge today - After discharge, [address] follow up with Dr. Jernigan <Cande Jon MD, FACOG - Last Filed: 04/18/22 07:24> (1) state: Subjective <Josi Bar - Last Filed: 04/18/22 06:34> Patient is a 36 yo female who is now PPD #2 following spontaneous vaginal delivery at 41 weeks. Reports feeling well this morning. She endorses abdominal cramping when breast feeding and 2/10 pain. Voiding without issue. Tolerating regular meals overnight and able to ambulate some. She has passed gas and had bowel movements. Persistent lochia with some improvement this morning. Currently breast feeding. Review of Systems Denies fever, chills, sweats. Denies SOB, difficulty breathing, chest pain, palpitations, and chest pressure. Denies breast pain. Denies dysuria. Denies headache or changes in vision. Physical Exam <Josi Navarroannettejulienne - Last Filed: 04/18/22 06:34> General: Alert and oriented. No acute distress. CV: Regular rate and rhythm. No murmurs. Respiratory: CTA bilaterally. No rhonchi, wheezes, or crackles. No increased work of breathing. Abdomen: Positive bowel sounds. Soft, nontender, non distended. Uterus: Fundus firm and palpable 2 cm below the umbilicus. Lower extremities: No LE edema. No deep calf pain. Aracelis's negative bilaterally. Results & Data ([facility]) <Josi NavarroDO alen - Last Filed: 04/18/22 06:34> Vital Signs (Past 12 Hours) Vital Signs Temp Pulse Resp BP 04/17/22 23:00 36.6 C 53 L 16 119/77 04/17/22 19:45 36.9 C 65 16 105/69 <Cande Jon MD, FACOG - Last Filed: 04/18/22 07:24> Co-Signing Physician Notes Resident Physician Supervision Note: I interviewed and examined the patient. Discussed with Dr. Bar and agree with findings and plan as documented in the note. Any exceptions or clarifications are listed here: [None] Documented By: Cande Jon MD, FACOG Resident Activity Tracking <Josi Bar, - Last Filed: 04/18/22 06:34> Resident Involvement: Resident Care Provided Care Provided: OB Delivery
[2022-04-18 06:52] LABS: Hematocrit (blood only) 35.8 % (34.1-44.9); Hemoglobin 11.8 g/dl (12.0-16.0)
[2022-04-18] MEDS: DOCUSATE SODIUM 100 MG CAP PO SCH (07:49)
[2022-04-18] MEDS: PRENATAL VITAMIN 1 TAB PO SCH (07:49)
== END 2022-04-18 09:58 | disposition home or self-care (01) | DRG 807 ==
LOC: 4S1 07:28 → 4E2 18:47